=== PATIENT | male | born 1990 ===

== ENCOUNTER 2018-08-01 16:00 | Outpatient (CLI) | payer OTHER | END 2018-08-01 16:01 | disposition home or self-care (01) | LOC: SLEEPLAB 16:00 | PROVIDERS: ATTEND Family Medicine | DX: G47.33 Obstructive sleep apnea (adult) (pediatric) (principal); G47.31 Primary central sleep apnea; E66.9 Obesity, unspecified; R06.83 Snoring | CPT/HCPCS: 95806 ==

== ENCOUNTER 2020-10-09 13:30 | Outpatient (CLI) | payer OTHER | END 2020-10-09 13:31 | disposition home or self-care (01) | LOC: DTY/OP 13:30 | PROVIDERS: ATTEND Family Medicine | DX: E66.01 Morbid (severe) obesity due to excess calories (principal) | CPT/HCPCS: 97802 ==